=== PATIENT | male | born 1955 | race Caucasian/White ===

== ENCOUNTER 2024-12-22 06:39 | Emergency (ER) | payer MEDICARE, BC ==
[~2024-12-22] VITALS: Ht 172.7 cm; Wt 96.2 kg
[2024-12-22] MEDS ORDERED: NOVOLOG FL100 UNIT/3 (07:52)
[2024-12-22] MEDS ORDERED: SOLIQUA 100 UNIT3 M1 SC (07:53)
[2024-12-22 08:21] LABS: BASOPHILS ABSOLUTE AUTO 0.08 K/mm3 (0.00-0.23); BASOPHILS PERCENT AUTO 1 % (0-2); EOSINOPHILS ABSOLUTE AUTO 0.38 K/mm3 (0.00-0.68); EOSINOPHILS PERCENT AUTO 3 % (0-6); Hematocrit 34.5 % (37.0-53.0); Hemoglobin 11.5 g/dL (13.5-17.5); IMMATURE GRAN ABSOLUTE AUTO 0.08 K/mm3 (0.00-0.10); IMMATURE GRAN PERCENT AUTO 1 % (0-1); LYMPHOCYTES ABSOLUTE AUTO 0.56 K/mm3 (0.84-5.20); LYMPHOCYTES PERCENT AUTO 4 % (21-46); MONOCYTES ABSOLUTE AUTO 0.96 K/mm3 (0.16-1.47); MONOCYTES PERCENT AUTO 7 % (4-13); Mean Corpuscular HGB 28.9 pg (26.0-34.0); Mean Corpuscular HGB Conc 33.3 g/dL (31.5-36.5); Mean Corpuscular Volume 87 fL (80-100); Mean Platelet Volume 10.5 fL (9.1-12.4); NEUTROPHILS ABSOLUTE AUTO 11.08 K/mm3 (1.96-9.15); NEUTROPHILS PERCENT AUTO 84 % (41-73); Platelet Count 386 K/mm3 (150-400); RDW Coefficient Variation 12.5 % (11.7-14.2); RDW Standard Deviation 39.8 fL (35.1-46.3); Red Blood Cell Count 3.98 M/mm3 (4.30-5.90); White Blood Cell Count 13.14 K/mm3 (4.00-11.30)
[2024-12-22 08:45] LABS: Albumin, Blood 2.3 g/dL (3.4-5.0); Albumin/Globulin Ratio 0.5 (0.8-1.8); Bilirubin, Total 0.4 mg/dL (0.1-1.0); Bun/Creatinine Ratio 13.9 (12.0-20.0); Calcium, Blood 8.7 mg/dL (8.5-10.1); Creatinine, Blood 2.02 mg/dL (0.60-1.20); Globulin, Blood 4.9 g/dL (2.2-4.0); Potassium, Blood 4.2 mmol/L (3.5-5.5); Total Protein, Blood 7.2 g/dL (6.4-8.2)
== END 2024-12-22 09:40 | disposition home or self-care (01) ==
LOC: ER 06:39
PROVIDERS: Emergency Medicine
DX: R07.89 Other chest pain (principal); E11.42 Type 2 diabetes mellitus with diabetic polyneuropathy; E11.51 Type 2 diabetes mellitus with diabetic peripheral angiopathy without gangrene; I25.10 Atherosclerotic heart disease of native coronary artery without angina pectoris; I10 Essential (primary) hypertension; I25.2 Old myocardial infarction; Z95.5 Presence of coronary angioplasty implant and graft; Z95.820 Peripheral vascular angioplasty status with implants and grafts; Z79.4 Long term (current) use of insulin
CPT/HCPCS: 71045; 80053; 84484; 85025; 93005; 93010; 99285-25

== ENCOUNTER → 2025-05-05 | Outpatient (CLI) | payer MEDICARE, BC ==
[~2025-05-05] MED LIST: NOVOLOG FL100 UNIT/3; SOLIQUA 100 UNIT3 M1 SC
[2025-05-05 17:16] LABS: Microalbumin, Urine Quant. 294.0 mg/L (0.000-20.000); Protein, Urine Quantitative 45.9 mg/dL (0.0-11.9); Sodium, Urine 107.0 mmol/L (20-110)
== END ==
LOC: LAB SHORT 07:00 → LAB 07:00 → LAB FUT 05-03 14:40
PROVIDERS: Internal Medicine Nephrology
DX: N18.30 Chronic kidney disease, stage 3 unspecified (principal); D75.1 Secondary polycythemia; N25.81 Secondary hyperparathyroidism of renal origin; E55.9 Vitamin D deficiency, unspecified; E78.00 Pure hypercholesterolemia, unspecified; R76.9 Abnormal immunological finding in serum, unspecified; R94.5 Abnormal results of liver function studies; R94.6 Abnormal results of thyroid function studies; G60.9 Hereditary and idiopathic neuropathy, unspecified; D51.8 Other vitamin B12 deficiency anemias; D50.9 Iron deficiency anemia, unspecified
CPT/HCPCS: 81050; 82043; 82570; 84156; 84300

== ENCOUNTER 2025-06-21 07:24 | Day surgery (SDC) | payer MEDICARE, BC ==
[2025-06-21] VITALS (7 sets, daily range): BP systolic 136–175; BP diastolic 65–87
[~2025-06-21] VITALS: Ht 172.7 cm; Wt 94.3 kg
[~2025-06-21 07:24] MED LIST changes: +Aspir 8181 MG PO; +CALCIUM CITRATE PO; +Crestor40 MG PO; +DOC250 PO; +FAMO20 PO; +LOSA25 PO; +Norco 7.5-3251 EACH PO
[2025-06-21] MEDS ORDERED: Nitroglycerin 2 MG/20 ML BTL ONE (09:09)
[2025-06-21] MEDS ORDERED: Heparin Sodium 1000 Units/ML 10ML MDV ONE ×2 (09:09→10:27)
[2025-06-21] MEDS ORDERED: NS 500 ML IV ONE (09:09)
[2025-06-21] MEDS ORDERED: NS 2,000 ML IV ONE (09:09)
[2025-06-21] MEDS ORDERED: NS 250 ML IV ONE (09:16)
[2025-06-21] MEDS ORDERED: Midazolam HCl 1MG / ML 2ML Vial ONE (09:33)
[2025-06-21] MEDS ORDERED: FentaNYL Citrate 50 MCG/ML 2 ML Injection ONE (09:33)
--- NOTE | 2025-06-21 11:32 | NUR ---
BACK FROM PROCEDURE. LEFT GROIN SITE STABLE WITHOUT SWELLING OR BLEEDING NOTED. NEW PRESCRIPTION FOR PLAVIX CALLED IN TO [facility]. PT STATES HE HAS BABY ASPIRIN AT HOME.
[2025-06-21] MEDS ORDERED: CLOP75 PO (11:35)
--- NOTE | 2025-06-21 12:30 | NUR ---
PT UP TO THE BATHROOM /C SBA. TOLERATED WELL. NEG BLEEDING OR SWELLING L GROIN AREA.
--- NOTE | 2025-06-21 13:18 | NUR ---
PT AND VERBALIZED UNDERSTANDING OF WRITTEN AND VERBAL D/C INST. IV REMOVED. PT TAKEN OUT OF THE HRT CENTER VIA W/C.
== END 2025-06-21 14:23 | disposition home or self-care (01) ==
LOC: MHTC 07:24
DX: E11.51 Type 2 diabetes mellitus with diabetic peripheral angiopathy without gangrene (principal); E11.22 Type 2 diabetes mellitus with diabetic chronic kidney disease; E11.40 Type 2 diabetes mellitus with diabetic neuropathy, unspecified; N18.9 Chronic kidney disease, unspecified; I12.9 Hypertensive chronic kidney disease with stage 1 through stage 4 chronic kidney disease, or unspecified chronic kidney disease; E78.5 Hyperlipidemia, unspecified; F17.210 Nicotine dependence, cigarettes, uncomplicated; Z79.899 Other long term (current) drug therapy
CPT/HCPCS: 37226; 37253; 75625; 75716; 75774; 76937; 99152; 99153; A9270; C1725; C1753; C1760; C1769; C1874; C1884; C1887; C1894; J1644; J2250; J3010; J7030; J7050; Q9967

== ENCOUNTER 2025-07-04 07:10 | Day surgery (SDC) | payer MEDICARE, BC ==
[~2025-07-04] VITALS: Ht 182.9 cm; Wt 94.3 kg
[2025-07-04] VITALS (7 sets, daily range): BP systolic 129–159; BP diastolic 66–77
[~2025-07-04 07:10] MED LIST changes: +CLOP75 PO
[2025-07-04] MEDS ORDERED: NS 1,000 ML IV ONE ×2 (07:46→08:37)
[2025-07-04] MEDS ORDERED: NS 100 ML IV ONE (07:46)
[2025-07-04] MEDS ORDERED: NS 250 ML IV ONE (07:46)
[2025-07-04] MEDS ORDERED: Heparin Sodium 1000 Units/ML 10ML MDV ONE ×2 (07:47→08:50)
[2025-07-04 07:53] LABS: BASOPHILS ABSOLUTE AUTO 0.08 K/mm3 (0.00-0.23); BASOPHILS PERCENT AUTO 1 % (0-2); EOSINOPHILS ABSOLUTE AUTO 0.16 K/mm3 (0.00-0.68); EOSINOPHILS PERCENT AUTO 1 % (0-6); Hematocrit 32.8 % (37.0-53.0); Hemoglobin 10.8 g/dL (13.5-17.5); IMMATURE GRAN ABSOLUTE AUTO 0.06 K/mm3 (0.00-0.10); IMMATURE GRAN PERCENT AUTO 1 % (0-1); LYMPHOCYTES ABSOLUTE AUTO 0.97 K/mm3 (0.84-5.20); LYMPHOCYTES PERCENT AUTO 8 % (21-46); MONOCYTES ABSOLUTE AUTO 0.85 K/mm3 (0.16-1.47); MONOCYTES PERCENT AUTO 7 % (4-13); Mean Corpuscular HGB Conc 32.9 g/dL (31.5-36.5); Mean Corpuscular Volume 88 fL (80-100); NEUTROPHILS ABSOLUTE AUTO 10.47 K/mm3 (1.96-9.15); NEUTROPHILS PERCENT AUTO 83 % (41-73); NRBC ABSOLUTE 0.00 K/mm3 (0.00-0.02); NRBC Auto 0.0 /100 WBC (0.0-0.2); Platelet Count 319 K/mm3 (150-400); RDW Coefficient Variation 13.2 % (11.7-14.2); RDW Standard Deviation 42.3 fL (35.1-46.3)
[2025-07-04 08:21] LABS: Anion Gap 6.0 mmol/L (3-11); Blood Urea Nitrogen 41.0 mg/dL (8-24); CO2, Blood 29.0 mmol/L (21-32); Calcium, Blood 8.7 mg/dL (8.5-10.1); Chloride, Blood 105.0 mmol/L (98-108); Creatinine, Blood 2.36 mg/dL (0.60-1.20); Glucose, Blood 219.0 mg/dL (70-99); Potassium, Blood 4.3 mmol/L (3.5-5.5); Sodium, Blood 136.0 mmol/L (136-145)
[2025-07-04] MEDS ORDERED: FentaNYL Citrate 50 MCG/ML 2 ML Injection ONE (08:37)
[2025-07-04] MEDS ORDERED: Midazolam HCl 1MG / ML 2ML Vial ONE (08:37)
[2025-07-04] MEDS ORDERED: Protamine Sulfate 50 MG Amp IV ONE (10:30)
[2025-07-04] MEDS ORDERED: ELIQUIS2.5 MG PO (11:00)
--- NOTE | 2025-07-04 11:32 | NUR ---
RIGHT FEMORAL GROIN SITE SOFT NON-TENDER WITH NO HEMATOMA, NO PULSATILE BLEEDING; SLIGHT TRACK OOZING NOTED ON R FEM GROIN SITE TEGADERM. RIGHT DP PULSE IS A 2. CALL LIGHT IN REACH.
--- NOTE | 2025-07-04 11:58 | NUR ---
RIGHT FEMORAL GROIN SITE STILL SOFT NON-TENDER, NO HEMATOMA, NO PULSATILE BLEEDING.
--- NOTE | 2025-07-04 12:34 | NUR ---
PT AND VERBALIZED UNDERSTANDING OF WRITTEN AND VERBAL D/C INST. PT AMB TO BATHROOM /C SBA. TOLERATED WELL. NEG BLEEDING OR SWELLING R GROIN AREA. IV REMOVED. PT TAKEN OUT OF THE HRT CENTER VIA W/C.
== END 2025-07-04 12:40 | disposition home or self-care (01) ==
LOC: MHTC 07:10
PROVIDERS: Student in an Organized Health Care Education/Training Program
DX: E11.51 Type 2 diabetes mellitus with diabetic peripheral angiopathy without gangrene (principal); E11.22 Type 2 diabetes mellitus with diabetic chronic kidney disease; N18.9 Chronic kidney disease, unspecified; I25.10 Atherosclerotic heart disease of native coronary artery without angina pectoris; I25.2 Old myocardial infarction; J43.9 Emphysema, unspecified; F17.210 Nicotine dependence, cigarettes, uncomplicated; Z79.4 Long term (current) use of insulin; Z79.82 Long term (current) use of aspirin; Z79.899 Other long term (current) drug therapy; Z95.5 Presence of coronary angioplasty implant and graft
CPT/HCPCS: 37226; 37252; 37253; 75710; 76937; 80048; 85025; 93005; 93010; 99152; 99153; C1725; C1753; C1760; C1769; C1874; C1887; C1894; C2623; J1644; J2250; J2720; J3010; J7030; J7050; Q9967

== ENCOUNTER 2025-07-28 12:37 | Inpatient (IN) | payer OTHER, MEDICARE, BC ==
[~2025-07-28] VITALS: Ht 172.7 cm; Wt 90.2 kg
[~2025-07-28 12:37] MED LIST changes: +ELIQUIS2.5 MG PO
[2025-07-28 13:15] LABS: BASOPHILS ABSOLUTE AUTO 0.05 K/mm3 (0.00-0.23); BASOPHILS PERCENT AUTO 1 % (0-2); EOSINOPHILS ABSOLUTE AUTO 0.11 K/mm3 (0.00-0.68); EOSINOPHILS PERCENT AUTO 1 % (0-6); Hematocrit 30.6 % (37.0-53.0); Hemoglobin 10.4 g/dL (13.5-17.5); IMMATURE GRAN ABSOLUTE AUTO 0.03 K/mm3 (0.00-0.10); IMMATURE GRAN PERCENT AUTO 0 % (0-1); LYMPHOCYTES ABSOLUTE AUTO 0.92 K/mm3 (0.84-5.20); LYMPHOCYTES PERCENT AUTO 12 % (21-46); MONOCYTES ABSOLUTE AUTO 0.43 K/mm3 (0.16-1.47); MONOCYTES PERCENT AUTO 5 % (4-13); Mean Corpuscular HGB Conc 34.0 g/dL (31.5-36.5); Mean Corpuscular Volume 88 fL (80-100); NEUTROPHILS ABSOLUTE AUTO 6.37 K/mm3 (1.96-9.15); NEUTROPHILS PERCENT AUTO 81 % (41-73); NRBC ABSOLUTE 0.00 K/mm3 (0.00-0.02); NRBC Auto 0.0 /100 WBC (0.0-0.2); Platelet Count 279 K/mm3 (150-400); RDW Coefficient Variation 13.3 % (11.7-14.2); RDW Standard Deviation 43.3 fL (35.1-46.3)
[2025-07-28 13:50] LABS: Anion Gap 9.0 mmol/L (3-11); Blood Urea Nitrogen 37.0 mg/dL (8-24); CO2, Blood 25.0 mmol/L (21-32); Calcium, Blood 9.1 mg/dL (8.5-10.1); Chloride, Blood 103.0 mmol/L (98-108); Creatinine, Blood 2.28 mg/dL (0.60-1.20); Glucose, Blood 118.0 mg/dL (70-99); Magnesium, Blood 1.4 mg/dL (1.6-2.4); Potassium, Blood 4.3 mmol/L (3.5-5.5); Sodium, Blood 133.0 mmol/L (136-145)
[2025-07-28] MEDS ORDERED: NS 1,000 ML IV SCH ×2 (16:50→18:05)
[2025-07-28] MEDS ORDERED: Labetalol HCL 5 MG/ML 4ML Injection (Single Dose) IV PRN (18:05)
[2025-07-28] MEDS ORDERED: FLU VACC TS2025(65UP)/MF59C/PF 45 MCG/0.5 ML SYRINGE IM SCH (18:05)
[2025-07-28] MEDS ORDERED: Ondansetron HCl 2 MG / ML 2ML Vial IV PRN (18:05)
[2025-07-28] MEDS ORDERED: Magnesium Sulf 2 GM/Water 50ML 50 ML IV STA (18:27)
[2025-07-28 18:49] VITALS: BP 180/84
[2025-07-28 19:24] VITALS: BP 152/80
[2025-07-28] MEDS ORDERED: CALC.25 PO (19:25)
--- NOTE | 2025-07-28 20:00 | NUR ---
ADMISSION NOTE PATIENT ADMITTED TO FLOOR DURING SHIFT CHANGE AND BEDSIDE REPORT WITH DAY SHIFT RN. ADMISSION DOCUMENTION PARTIALLY COMPLETED, PATIENT UNSURE OF ALL HOME MEDICATIONS AND AWAITING TO BRING IN HOME MEDS IN ORDER TO COMPLETE MED REC. PATIENT WITH MOIST RASH TO GROIN, NO OTHER SKIN CONCERNS. CARDIOLOGY CONSULTED. IV MAG AND IV FLUIDS RUNNING PER OCT. SBP UPON ARRIVAL TO UNIT 18Os, RECHECKED AND BELOW LIMITS TO ADMINISTER IV LABETOLOL. PLAN TO BE NPO AFTER MIDNIGHT FOR STRESS TEST, ECHOCARDIOGRAM ORDERED. TELEMETRY IN PLACE, SINUS 80s. PATIENT DENIES CHEST PAIN OR PRESSURE AT THIS TIME. PROVIDED WITH DINNER. PATIENT REFUSING SCDs. WILL CONTINUE TO MONITOR.
[2025-07-28 23:54] VITALS: BP 146/63
[2025-07-29] VITALS (10 sets, daily range): BP systolic 120–165; BP diastolic 50–100
[2025-07-29 06:21] LABS: Hematocrit 28.9 % (37.0-53.0); Hemoglobin 9.6 g/dL (13.5-17.5); Mean Corpuscular HGB Conc 33.2 g/dL (31.5-36.5); Mean Corpuscular Volume 88 fL (80-100); NRBC ABSOLUTE 0.00 K/mm3 (0.00-0.02); NRBC Auto 0.0 /100 WBC (0.0-0.2); Platelet Count 207 K/mm3 (150-400); RDW Coefficient Variation 13.3 % (11.7-14.2); RDW Standard Deviation 43.5 fL (35.1-46.3)
[2025-07-29 06:38] LABS: Anion Gap 9.0 mmol/L (3-11); Blood Urea Nitrogen 34.0 mg/dL (8-24); CO2, Blood 24.0 mmol/L (21-32); Calcium, Blood 8.5 mg/dL (8.5-10.1); Chloride, Blood 108.0 mmol/L (98-108); Creatinine, Blood 2.14 mg/dL (0.60-1.20); Glucose, Blood 150.0 mg/dL (70-99); Magnesium, Blood 1.9 mg/dL (1.6-2.4); Potassium, Blood 4.2 mmol/L (3.5-5.5); Sodium, Blood 137.0 mmol/L (136-145)
--- NOTE | 2025-07-29 06:38 | NUR ---
SHIFT SUMMARY PATIENT A/OX4, ABLE TO MAKE NEEDS KNOWN. PLEASANT AND COOPERATIVE WITH CARE. PATIENT HAS BEEN NPO SINCE MIDNIGHT FOR PENDING CORONARY ANGIOGRAM. PER BEDSIDE SHIFT REPORT POSSIBLE STRESS TEST, NO ORDERS OBSERVED, HOWEVER ANGIOGRAM IS PLANNED. PLAN FOR ECHOCARDIOGRAM TODAY. CONTINUES TO REFUSE SCDs. TELEMETRY IN PLACE, NSR 80s. PATIENT IS INDEPENDENT IN ROOM. IV FLUIDS RUNNING PER OCT. NO OTHER CHANGES SINCE ADMISSION NOTE. WILL CONTINUE TO MONITOR.
[2025-07-29] MEDS ORDERED: Enoxaparin 40 MG/0.4 ML SYR SC SCH (09:00)
[2025-07-29] MEDS ORDERED: Crestor40 MG PO (12:23)
[2025-07-29] MEDS ORDERED: SOLIQUA 100 UNIT3 M1 SC (12:25)
[2025-07-29] MEDS ORDERED: Isosorbide Mono30 MG PO (12:27)
[2025-07-29] MEDS ORDERED: NS 250 ML IV ONE (12:53)
[2025-07-29] MEDS ORDERED: NS 1,000 ML IV ONE ×2 (12:53→13:14)
[2025-07-29] MEDS ORDERED: Heparin Sodium 1000 Units/ML 10ML MDV ONE (12:53)
[2025-07-29] MEDS ORDERED: Verapamil HCL 2.5 MG/ML 2ML Injection ONE (12:53)
[2025-07-29] MEDS ORDERED: Nitroglycerin 2 MG/20 ML BTL ONE (12:54)
[2025-07-29] MEDS ORDERED: FentaNYL Citrate 50 MCG/ML 2 ML Injection ONE (13:14)
[2025-07-29] MEDS ORDERED: Midazolam HCl 1MG / ML 2ML Vial ONE (13:14)
--- NOTE | 2025-07-29 13:29 | NUR ---
LEFT TO MERCHANDISE WORKER WITH YESSICA AT 1300
--- NOTE | 2025-07-29 13:45 | NUR ---
9089 GAVE REPORT TO PCU NURSE AFTAB WATTS FOR PATIENT COMING TO HER FROM 332
[2025-07-29] MEDS ORDERED: NS 500 ML IV ONE (14:05)
--- NOTE | 2025-07-29 14:30 | NUR ---
TRANSFER OF CARE: PT ARRIVED ON UNIT IN FROM SCOURING MACHINE TENDER, RIGHT RADIAL ACCESS, TR BAND IN PLACE WITH WRIST IMMOBILIZER. PT DENIES CHEST PAIN OR PRESSURE, ENDORSES MILD DIZZINESS AND HEADACHE PT STATES HE BELIEVES IT IS FROM THE NIRTO HE RECEIVED. A/O X4, PLEASANT AND COOPERATIVE WITH CARE, EATING SANDWICH AND PUDDING. ENDORSES NO ADDITIONAL NEEDS AT THIS TIME.
--- NOTE | 2025-07-29 14:52 | NUR ---
MD PATRICK AT BEDSIDE PLAN TO TRANSFER TO [facility] FOR EXPECTED CABG, WORKING OUT DETAILS ON TIMELINE FOR TRANSFER. ECHO AT BEDSIDE AT APPROX 1455
[2025-07-29 15:51] LABS: Prothrombin Time Results 11.1 Sec (9.7-11.5)
[2025-07-29 15:55] LABS: Anti-Xa UFH, PHA Monitoring 1.05 IU/mL
[2025-07-29] MEDS ORDERED: Insulin Human Lispro 100 Units/ML 3ML Syringe SC SCH ×2 (16:30)
--- NOTE | 2025-07-29 18:53 | NUR ---
SHIFT SUMMARY: PT CAME TO UNIT POST HUMAN RESOURCES MGR, RIGHT RADIAL ACCESS, TR BAND DEFLATED, BAND TO BE REMOVED AT 1715, PLAN TO RESTART HEPARIN GTT ONCE TR BAND RECOVERED, CALL PHARMACY WHEN TR BAND REMOVED. SITE HAD SOME OOZING ON ARRIVAL, NO FURTHER EVENTS, SITE IS SOFT AND WITHOUT ACUTE CHANGES. PLAN TO TRANSFER PT TO [facility] TOMORROW 07/30 FOR A CABG. A/O X4, PLEASANT AND COOPERATIVE WITH CARE, ABLE TO COMMUNICATE NEEDS, AQUILINO AT BEDSIDE. PT DENIES CHEST PAIN OR PRESSURE, SPO2>92% ON RA, DENIES SOB. AMBULATES WITH CANE USING RIGHT HAND AT BASELINE, AMBULATED TO BATHROOM WITHOUT CANE WITH NURSE ASSIST WITHOUT INCIDENT.
[2025-07-29] MEDS ORDERED: Heparin Sodium,Porcine/0.5 NS 500 ML IV SCH (20:30)
[2025-07-29] MEDS ORDERED: Insulin Glargine-Yfgn 100 Unit/mL 3 ML SYR SC SCH (21:00)
[2025-07-30] VITALS (8 sets, daily range): BP systolic 114–171; BP diastolic 56–95
[2025-07-30] MEDS ORDERED: HYDROcodone 7.5-APAP 325 TAB PO PRN (01:15)
[2025-07-30 04:59] LABS: Hematocrit 28.7 % (37.0-53.0); Hemoglobin 9.7 g/dL (13.5-17.5); Mean Corpuscular HGB Conc 33.8 g/dL (31.5-36.5); Mean Corpuscular Volume 88 fL (80-100); NRBC ABSOLUTE 0.00 K/mm3 (0.00-0.02); NRBC Auto 0.0 /100 WBC (0.0-0.2); Platelet Count 216 K/mm3 (150-400); RDW Coefficient Variation 13.4 % (11.7-14.2); RDW Standard Deviation 43.0 fL (35.1-46.3)
[2025-07-30] MEDS ORDERED: Dose Adjust by Pharmacy XX STA ×3 (05:13→19:08)
[2025-07-30 05:44] LABS: Anion Gap 8.0 mmol/L (3-11); Blood Urea Nitrogen 32.0 mg/dL (8-24); CO2, Blood 24.0 mmol/L (21-32); Calcium, Blood 8.6 mg/dL (8.5-10.1); Chloride, Blood 109.0 mmol/L (98-108); Creatinine, Blood 1.99 mg/dL (0.60-1.20); Glucose, Blood 125.0 mg/dL (70-99); Potassium, Blood 4.4 mmol/L (3.5-5.5); Sodium, Blood 137.0 mmol/L (136-145)
--- NOTE | 2025-07-30 06:29 | NUR ---
SHIFT SUMMARY/ASSUMPTION OF CARE ASSUMED CARE OF PT AT APPROXIMATELY 1900. PTS AT BEDSIDE AT SHIFT CHANGE. PTS WOULD LIKE NOTIFIED WHEN WE HAVE A TIME SET FOR PT TO TRANSFER SO SHE CAN FOLLOW BEHIND. TR BAND IN PLACE AT SHIFT CHANGE. ANGIO INSERTION SITE WITHOUT ANY ABNORMALITIES, NO DRAINING OR BLEEDING PRESENT. TR BAND REMOVED AND PT STARTED ON HEPARIN GTT, RUNNING AT 13 UNITS/KG/HR. PT TOLERATING WELL. PT REPORTED BACK PAIN, STATED HE TAKES NORCO 7.5/325 AT HOME FOR PAIN. MD WOODWARD NOTIFIED AND ORDER PLACED. PT REPORTS IMPROVED PAIN LEVELS. NO C/O CHEST PAIN OR PRESSURE. NO C/O SOB. SPO2 >94% ON RA. PT AOX4. ABLE TO MAKE ALL NEEDS KNOWN. CALL LIGHT WITHIN REACH AND PT CALLS FOR ASSISTANCE APPROPRIATELY. BED IN LOWEST AND LOCKED POSITION.
--- NOTE | 2025-07-30 10:20 | NUR ---
PT PLEASANT COOP A/O X3, STATES BACK PAIN /10, STATES MEDICATED RECENTLY. SO WILL BE COMFORTABLE. CHEST PAIN GOOD AT 09/03, WAS HIGHER LAST JESUS, BETTER NOW. LUNGS CLEAR, RESP EASY, UHLABORED, ON HEPARIN DRIP. VERIFIED WITH EDITH ROMANO AT SHIFT CHANGE. PENDING TRANSFER TO [facility] FOR FURTHER TREATMENT. BED IN LOW POSITION, CALL LITE IN REACH, CALLS APPROP
--- NOTE | 2025-07-30 11:01 | NUR ---
BP 171/[address] PEREZ. PT TO BE ON IMDUR. WILL ORDER, AFTER TAKES, RECHECK BP.
[2025-07-30] MEDS ORDERED: Isosorbide Mononitrate 60 MG TABCR PO SCH (12:00)
--- NOTE | 2025-07-30 16:59 | NUR ---
PT PLEASANT AND AWAITING TRANSFER TO [facility] FOR POSS CABG. STATES PAIN / TODAY. STATES IMPROVED. IN TO VISIT TODAY, M/W HOSP STATES NOT TAKE TODAY. EXPECT TOMORROW. BP UP SOME THIS MIDDAY. IMDUR RESUMED PER DR PEREZ. CONTINUES ON HEPARIN DRIP. PT STATES B/M THIS AM. NORMAL. NO OTHER NEW CONCERNS NOTED. BED IN LOW POSITION, CALL LITE IN REACH, CALLS APPROP
[2025-07-31] MEDS ORDERED: Dose Adjust by Pharmacy XX STA ×2 (01:07→08:59)
[2025-07-31 04:07] VITALS: BP 115/48
--- NOTE | 2025-07-31 06:02 | NUR ---
SHIFT SUMMARY/ASSUMPTION OF CARE ASSUMED CARE OF PT AT APPROXIMATELY 1900. PTS AT BEDSIDE AT SHIFT CHANGE. PT TO TRANSFER TO [facility] 07/31. PTS WOULD LIKE NOTIFIED WHEN WE HAVE A TIME SET FOR PT TO TRANSFER SO SHE CAN FOLLOW BEHIND. HEPARIN GTT RUNNING AT 14 UNITS/KG/HR. PT TOLERATING WELL, SO S/S ADVERSE EFFECTS. VSS. AOX4. ABLE TO MAKE ALL NEEDS KNOWN. CALL LIGHT WITHIN REACH AND PT ABLE TO CALL FOR ASSISTANCE APPROPRIATELY WHEN NEEDED. BED IN LOWEST AND LOCKED POSITION.
[2025-07-31 07:49] VITALS: BP 123/61
--- NOTE | 2025-07-31 09:20 | NUR ---
AM NOTE: PATIENT ALERT AND ORIENTED X4. MOVING ALL EXTREMITIES. UP WITH SBA FOR SAFETY WITH HEPARIN GTT. AT BEDSIDE THIS MORNING AND UPDATED ON PLAN OF CARE. TELE SHOWING SR WITH HR 70-80'S. DENIES CHEST PAIN/PRESSURE/PALPITATIONS THIS MORNING. HEPARIN GTT INFUSING PER EMAR. TRACE BLE EDEMA. BOWEL TONES PRESENT. TOLERATING PO DIET WITHOUT ISSUES. ACHS BLOOD SUGARS. GLUCOSE MONITOR TO LEFT ARM. UP WITH SBA TO BATHROOM. BED BATH THIS MORNING. REDNESS TO GROIN AREA. SKIN PALE WITH SCATTERED BRUISING. COMPLAINS OF CHRONIC BACK PAIN THIS MORNING AND MEDICATED PER EMAR. CALL LIGHT IN REACH. DENIES NEEDS AT THIS TIME.
[2025-07-31 09:42] VITALS: BP 123/61
--- NOTE | 2025-07-31 10:36 | NUR ---
[facility]RA TRANSFER AT 1015 AM TO [facility] CCU ROOM 267. REPORTED OFF EMELI ROMANO. PATIENT LEFT ALERT AND ORIENTED X4. SR WITH HR 80'S. ON ROOM AIR. HEPARIN GTT INFUSING PER EMAR. AT BEDSIDE FOR TRANSFER. PATIENT LEFT WITH ALL PERSONAL BELONGINGS.
== END 2025-07-31 10:56 | disposition short-term general hospital (02) | DRG 287 ==
LOC: ER 12:37 → MEDS 12:38 → PCU 07-29 14:10
PROVIDERS: Emergency Medicine; Internal Medicine; Nurse Practitioner Acute Care; ADMIT Internal Medicine
PROC: B2111ZZ Fluoroscopy of Multiple Coronary Arteries using Low Osmolar Contrast (ICD-10-PCS; principal; 2025-07-29)
DX: I25.110 Atherosclerotic heart disease of native coronary artery with unstable angina pectoris (principal); E11.42 Type 2 diabetes mellitus with diabetic polyneuropathy; M19.90 Unspecified osteoarthritis, unspecified site; E11.51 Type 2 diabetes mellitus with diabetic peripheral angiopathy without gangrene; I12.9 Hypertensive chronic kidney disease with stage 1 through stage 4 chronic kidney disease, or unspecified chronic kidney disease; E11.22 Type 2 diabetes mellitus with diabetic chronic kidney disease; N18.32 Chronic kidney disease, stage 3b; F17.210 Nicotine dependence, cigarettes, uncomplicated; D63.1 Anemia in chronic kidney disease; E78.5 Hyperlipidemia, unspecified; I25.2 Old myocardial infarction; Z79.02 Long term (current) use of antithrombotics/antiplatelets; Z95.5 Presence of coronary angioplasty implant and graft; Z95.820 Peripheral vascular angioplasty status with implants and grafts; Z79.4 Long term (current) use of insulin
CPT/HCPCS: 36415; 71045; 76937; 80048; 82947; 83735; 84484; 85025; 85027; 85520; 85610; 85730; 93005; 93010; 93306; 93458; 96360; 96361; 96365; 96366; 99152; 99153; 99285-25; A9270; C1769; C1887; C1894; G0378; J1644; J1815; J2250; J3010; J3475; J7030; J7040; J7050; Q9967

== ENCOUNTER 2025-08-23 15:26 | Inpatient (IN) | payer MEDICARE, BC ==
[~2025-08-23] VITALS: Ht 172.7 cm; Wt 93.2 kg
[~2025-08-23 15:26] MED LIST changes: +CALC.25 PO; +Isosorbide Mono30 MG PO
[2025-08-23 15:56] LABS: BASOPHILS ABSOLUTE AUTO 0.04 K/mm3 (0.00-0.23); BASOPHILS PERCENT AUTO 1 % (0-2); EOSINOPHILS ABSOLUTE AUTO 0.08 K/mm3 (0.00-0.68); EOSINOPHILS PERCENT AUTO 1 % (0-6); Hematocrit 18.8 % (37.0-53.0); IMMATURE GRAN ABSOLUTE AUTO 0.03 K/mm3 (0.00-0.10); IMMATURE GRAN PERCENT AUTO 0 % (0-1); LYMPHOCYTES ABSOLUTE AUTO 0.94 K/mm3 (0.84-5.20); LYMPHOCYTES PERCENT AUTO 12 % (21-46); MONOCYTES ABSOLUTE AUTO 0.41 K/mm3 (0.16-1.47); MONOCYTES PERCENT AUTO 5 % (4-13); Mean Corpuscular HGB Conc 28.2 g/dL (31.5-36.5); Mean Corpuscular Volume 90 fL (80-100); NEUTROPHILS ABSOLUTE AUTO 6.62 K/mm3 (1.96-9.15); NEUTROPHILS PERCENT AUTO 82 % (41-73); NRBC ABSOLUTE 0.03 K/mm3 (0.00-0.02); NRBC Auto 0.4 /100 WBC (0.0-0.2); Platelet Count 248 K/mm3 (150-400); RDW Coefficient Variation 15.4 % (11.7-14.2); RDW Standard Deviation 49.7 fL (35.1-46.3)
[2025-08-23 16:10] LABS: Hemoglobin 5.3 g/dL (13.5-17.5)
[2025-08-23 16:13] LABS: Alanine Aminotransfer (ALT/SGP 23.0 U/L (12-78); Albumin, Blood 3.7 g/dL (3.4-5.0); Albumin/Globulin Ratio 1.1 (0.8-1.8); Anion Gap 12.0 mmol/L (3-11); Aspartate Aminotrans (AST/SGOT 9.0 U/L (12-37); Bilirubin, Total 0.5 mg/dL (0.1-1.0); Blood Urea Nitrogen 41.0 mg/dL (8-24); CO2, Blood 21.0 mmol/L (21-32); Calcium, Blood 8.6 mg/dL (8.5-10.1); Chloride, Blood 108.0 mmol/L (98-108); Creatinine, Blood 2.69 mg/dL (0.60-1.20); Globulin, Blood 3.4 g/dL (2.2-4.0); Glucose, Blood 191.0 mg/dL (70-99); Potassium, Blood 5.0 mmol/L (3.5-5.5); Sodium, Blood 136.0 mmol/L (136-145); Total Protein, Blood 7.1 g/dL (6.4-8.2)
[2025-08-23] MEDS ORDERED: NS 1,000 ML IV SCH ×2 (17:30→17:55)
[2025-08-23 17:40] LABS: IMMATURE RETIC FRACTION 25.7 % (2.3-16.0); RETIC HGB EQUIVALENT 15.6 pg (28.20-36.60); RETICULOCYTE COUNT PERCENT 4.08 % (0.50-2.50)
[2025-08-23] MEDS ORDERED: NS 1,000 ML IV ONE (17:55)
[2025-08-23] MEDS ORDERED: Pantoprazole Sodium 40 MG Injection IV ONE (17:55)
[2025-08-23 20:39] LABS: Prothrombin Time Results 10.9 Sec (9.7-11.5)
[2025-08-23] MEDS ORDERED: Ondansetron HCl 2 MG / ML 2ML Vial IV PRN (23:05)
[2025-08-23] MEDS ORDERED: FLU VACC TS2025(65UP)/MF59C/PF 45 MCG/0.5 ML SYRINGE IM SCH (23:10)
[2025-08-23] MEDS ORDERED: NITR.4SL SL (23:53)
[2025-08-24] VITALS (11 sets, daily range): BP systolic 111–139; BP diastolic 43–59
[2025-08-24] MEDS ORDERED: METO50ER PO (00:04)
[2025-08-24] MEDS ORDERED: EFFIENT10 MG PO (00:05)
[2025-08-24] MEDS ORDERED: AMLO5 PO (00:05)
[2025-08-24] MEDS ORDERED: HYDROcodone 7.5-APAP 325 TAB PO ONE (00:55)
--- NOTE | 2025-08-24 01:56 | NUR ---
ADMIT NOTE HANDOFF RECEIVED FROM [employer] SUPERVISOR IRAM. PT ARRIVED TO FLOOR VIA WHEELCHAIR. PT ORIENTED TO UNIT. CALL BUTTON WITHIN REACH. TELEMETRY: NSR @ 80 BPM. PERSONAL POSSESSIONS WITH PT. AT BEDSIDE. HE IS A&O X4, ON RA. IV PROTONIX AND IF FLUID INFUSING ORDERED.
--- NOTE | 2025-08-24 04:11 | NUR ---
END OF SHIFT SUMMARY: PATIENT IS AXOX4. FULL CODE. ADMITTED FOR ANEMIA AND POSSIBLE GI BLEED AND IS AWAITING TRANSPORT TO [facility]. PATIENT IS ON TELE - NSR @ 80 BPM. IV PROTONIX AND LR ARE INFUSING PER EMAR. PATIENT WAS ADMINISTERED 2 BAGS OF PRBC S IN THE ER. PATIENT IS CONTINENT OF BOWEL AND BLADDER. PATIENT USES A CANE AT BASELINE AND IS A 1 PERSON SBA FOR WEAKNESS. PATIENT TAKES MEDS WHOLE WITH FLUIDS. PATIENT IS ABLE TO MAKE NEEDS KNOWN. BED IN LOWEST POSITION. CALL LIGHT WITHIN REACH AND PATIENT HAS BEEN EDUCATED ON HOW TO USE. WILL REPORT TO ONCOMING NURSE.
[2025-08-24 05:34] LABS: BASOPHILS ABSOLUTE AUTO 0.05 K/mm3 (0.00-0.23); BASOPHILS PERCENT AUTO 1 % (0-2); EOSINOPHILS ABSOLUTE AUTO 0.19 K/mm3 (0.00-0.68); EOSINOPHILS PERCENT AUTO 3 % (0-6); Hematocrit 20.8 % (37.0-53.0); Hemoglobin 6.7 g/dL (13.5-17.5); IMMATURE GRAN ABSOLUTE AUTO 0.02 K/mm3 (0.00-0.10); IMMATURE GRAN PERCENT AUTO 0 % (0-1); LYMPHOCYTES ABSOLUTE AUTO 1.03 K/mm3 (0.84-5.20); LYMPHOCYTES PERCENT AUTO 15 % (21-46); MONOCYTES ABSOLUTE AUTO 0.53 K/mm3 (0.16-1.47); MONOCYTES PERCENT AUTO 8 % (4-13); Mean Corpuscular HGB Conc 32.2 g/dL (31.5-36.5); NEUTROPHILS ABSOLUTE AUTO 5.16 K/mm3 (1.96-9.15); NEUTROPHILS PERCENT AUTO 74 % (41-73); NRBC ABSOLUTE 0.02 K/mm3 (0.00-0.02); NRBC Auto 0.3 /100 WBC (0.0-0.2); Platelet Count 169 K/mm3 (150-400); RDW Coefficient Variation 14.6 % (11.7-14.2); RDW Standard Deviation 45.4 fL (35.1-46.3)
[2025-08-24 05:41] LABS: Mean Corpuscular Volume 85 fL (80-100)
[2025-08-24 06:26] LABS: Alanine Aminotransfer (ALT/SGP 19.0 U/L (12-78); Albumin, Blood 3.0 g/dL (3.4-5.0); Albumin/Globulin Ratio 1.0 (0.8-1.8); Anion Gap 9.0 mmol/L (3-11); Aspartate Aminotrans (AST/SGOT 8.0 U/L (12-37); Bilirubin, Total 0.8 mg/dL (0.1-1.0); Blood Urea Nitrogen 42.0 mg/dL (8-24); CO2, Blood 22.0 mmol/L (21-32); Calcium, Blood 8.3 mg/dL (8.5-10.1); Chloride, Blood 111.0 mmol/L (98-108); Creatinine, Blood 2.36 mg/dL (0.60-1.20); Globulin, Blood 2.9 g/dL (2.2-4.0); Glucose, Blood 128.0 mg/dL (70-99); Magnesium, Blood 2.0 mg/dL (1.6-2.4); Potassium, Blood 4.2 mmol/L (3.5-5.5); Sodium, Blood 138.0 mmol/L (136-145); Total Protein, Blood 5.9 g/dL (6.4-8.2)
--- NOTE | 2025-08-24 07:31 | NUR ---
KASIE IN BLOOD BANK CONTACTED RN INFORMING BLOOD TYPE NEEDED FOR PT INFUSION IS LIMITED AND THEY ONLY HAVE EMERGENCY STOCK AT THIS TIME. RN CONTACTED PROVIDER TO INFORM ADDITIONAL BLOOD IS ON THE WAY FROM [place], PROVIDER AWARE AND OKAY WITH HOLDING INFUSION UNTIL BLOOD ARRIVES. RN INFORMED KASIE TO LET RN KNOWN WHEN BLOOD ARRIVES. PT HGB CURRENTLY 6.7, BP 118/49, A/Ox4, AWAKE AND RESPONSIVE. PHP [employer] DEVELOPER NOTIFIED WELL. NO UPDATE ON COBRA TRASNFER AT THIS TIME. PROVIDER WOULD LIKE TO BE INFORMED ONCE ANY UPDATE ON TRANSFER IS AVAILABLE.
[2025-08-24] MEDS ORDERED: NS 500 ML IV SCH (11:00)
[2025-08-24] MEDS ORDERED: ASPI81CH PO (11:51)
--- NOTE | 2025-08-24 12:07 | NUR ---
MEDICAL RECORD REQUEST FORM FILLED OUT, PT SIGNED FORM. FORM FAXED TO [facility] PER DR. BRANTLEY ORDERS BY ACC END FRAZER.
--- NOTE | 2025-08-24 13:11 | NUR ---
RN PROVIDED REPORT TO ROSALINA WARD @ [facility] VIA PHONE - SYLVIA CONTACTED THIS RN REQUESTING REPORT, REPORT PROVIDED, AND SYLVIA REPORTS SHE WILL GET BACK TO STAFF RE TRANSFER.
--- NOTE | 2025-08-24 15:00 | NUR ---
BLOOD TRANSFVUSION PT FINISHED RECIEFVING 1 UNIT PRBC'S, PT TOLERATED WELL, FVSS, PT SITTING UP ON THE SIDE OFV THE BED
[2025-08-24 16:01] LABS: Hematocrit 25.4 % (37.0-53.0); Hemoglobin 8.3 g/dL (13.5-17.5)
--- NOTE | 2025-08-24 18:30 | NUR ---
PT TRANSFERED TO [facility] VIA AMBULANCE FOR GI BLEED. REPORT CALLED IN TO ROSALINA ALCALA @ [facility] @ APPROX 1600. BILATERAL PIV REMAIN IN PLACE, SALINE LOCKED PRIOR TO TRANSPORT. TELE REMOVED/CLEANED AND SENT BACK TO PCU. PT AMBULATED INDEPENDENTLY TO [facility] AND REPORTS HAVING ALL BELONGINGS. PT SPOUSE CONTACTED PER REQUEST INFORMING PT IS ON HIS WAY TO [facility] AND RM NUMBER PROVIDED TO SPOUSE.
[2025-08-24] MEDS ORDERED: Miconazole Nitrate 2% 85 GM PWD TOP SCH (21:00)
== END 2025-08-24 18:06 | disposition short-term general hospital (02) | DRG 378 ==
LOC: ER 15:26 → MEDS 15:27 → ERHOLD 15:27 → MEDS 08-24 00:22
PROVIDERS: Student in an Organized Health Care Education/Training Program; ADMIT Student in an Organized Health Care Education/Training Program
PROC: 30233N1 Transfusion of Nonautologous Red Blood Cells into Peripheral Vein, Percutaneous Approach (ICD-10-PCS; principal; 2025-08-23)
PROC: 3E02340 Introduction of Influenza Vaccine into Muscle, Percutaneous Approach (ICD-10-PCS; 2025-08-23)
DX: K92.2 Gastrointestinal hemorrhage, unspecified (principal); D62 Acute posthemorrhagic anemia; N17.9 Acute kidney failure, unspecified; E11.42 Type 2 diabetes mellitus with diabetic polyneuropathy; I25.10 Atherosclerotic heart disease of native coronary artery without angina pectoris; E11.51 Type 2 diabetes mellitus with diabetic peripheral angiopathy without gangrene; Z99.2 Dependence on renal dialysis; M19.90 Unspecified osteoarthritis, unspecified site; N18.30 Chronic kidney disease, stage 3 unspecified; I12.9 Hypertensive chronic kidney disease with stage 1 through stage 4 chronic kidney disease, or unspecified chronic kidney disease; E11.22 Type 2 diabetes mellitus with diabetic chronic kidney disease; D63.1 Anemia in chronic kidney disease; E11.65 Type 2 diabetes mellitus with hyperglycemia; J43.9 Emphysema, unspecified; Z95.5 Presence of coronary angioplasty implant and graft; Z79.4 Long term (current) use of insulin; Z87.19 Personal history of other diseases of the digestive system; Z79.891 Long term (current) use of opiate analgesic; Z79.899 Other long term (current) drug therapy; Z23 Encounter for immunization
CPT/HCPCS: 36415; 36430; 71046; 80053; 82947; 83735; 83880; 84484; 85014; 85018; 85025; 85045; 85610; 85730; 86850; 86900; 86901; 86923; 93005; 93010; 96374; 99285-25; A9270; G0378; J2470; J7030; J7040; J7120; P9016